=== PATIENT | male | born 1955 | race Caucasian/White ===

== ENCOUNTER → 2017-08-12 | Outpatient (REF) ==
[2017-08-12 18:48] LABS: THYROID STIMULATING HORMONE 1.32 uIU/mL (0.465-4.680)
== END ==
LOC: ZLAB.WCH 17:54
PROVIDERS: Nurse Practitioner Family
DX: Z01.89 Encounter for other specified special examinations (principal)

== ENCOUNTER → 2017-10-29 | Outpatient (REF) ==
[2017-10-29 15:40] LABS: IRON,SERUM 151 ug/dL (35-150)
[2017-10-29 15:50] LABS: TOTAL IRON BINDING CAPACITY 288 ug/dL (261-462)
[2017-10-29 16:17] LABS: FERRITIN 159 ng/mL (18-464)
== END ==
LOC: ZLAB.WCH 15:18
PROVIDERS: Internal Medicine
DX: Z01.89 Encounter for other specified special examinations (principal)

== ENCOUNTER → 2018-03-21 | Outpatient (REF) | LOC: ZLAB.WCH 18:04 | DX: Z01.89 Encounter for other specified special examinations (principal) ==